=== PATIENT | female | born 1990 | race Caucasian/White ===

== ENCOUNTER 2019-09-10 16:44 | Outpatient (RCR) | payer BC, SELFPAY ==
--- NOTE | 2019-10-08 14:14 | PCPTNOTE ---
patient called and cancelled appt today. MERLIN
== END 2019-10-15 09:10 | disposition home or self-care (01) ==
LOC: CHSPT 16:44
DX: M54.5 Low back pain (principal)
CPT/HCPCS: 97014; 97110; 97161; 97530; G0283

== ENCOUNTER 2020-02-24 18:03 | Emergency (ER) | payer OTHER, SELFPAY ==
--- NOTE | ~2020-02-24 | CT_ITS ---
EXAMINATION: CT abdomen pelvis w con INDICATION: Left lower quadrant pain TECHNIQUE: Computed tomographic images of the abdomen and pelvis were obtained after the administrati on of 100 cc of Omnipaque 350 intravenous contrast. The dose-length product (DLP) was 1224.51 mGy-cm. Automated exposure control and iterative reconstruction technique were employed. COMPARISON: None available FINDINGS: The lung bases are clear. The heart size is normal. There is a 7 mm cyst in the right hepat ic lobe. The spleen, pancreas, gallbladder, and adrenal glands are normal. The left kidney is unremar kable. There is moderate left hydroureteronephrosis ending in a right-sided ureterocele. No pathologi geraldo enlarged abdominal or pelvic lymph nodes are identified. There is no free intraperitoneal gas o r evidence of bowel obstruction. The appendix is normal. An IUD is present in expected position. A mo derate volume of colonic stool is present. A fat-containing umbilical hernia is noted. IMPRESSION: 1. No CT correlate for the patient's symptoms. 2. Moderate right hydroureteronephrosis ending in a right-sided ureterocele. In the absence of right- sided symptoms, nonemergent urologic evaluation is recommended. Reviewed, dictated and finalized at location A. [facility] IMPRESSION: 1. No CT correlate for the patient's symptoms. 2. Moderate right hydroureteronephrosis ending in a right-sided ureterocele. In the absence of right-sided symptoms, nonemergent urologic evaluation is recomm ended.
[2020-02-24 18:06] VITALS: BP 137/83; PULSE 92; RESP 18; TEMP 36.4; O2SAT 100
[2020-02-24] MEDS: SODIUM CHLORIDE 0.9% IV 1,000 ML 999 ML IV CONT (18:51)
[2020-02-24] MEDS: FAMOTIDINE 20 MG/2 ML VIAL IV PUSH (18:52)
[2020-02-24] MEDS: PROCHLORPERAZINE EDISYLATE 10 MG/2 ML VIAL IV PUSH (18:52)
[2020-02-24] MEDS: HYOSCYAMINE SULFATE 0.125 MG TABLET PO (18:52)
[2020-02-24 18:57] LABS: Basophils Percent Auto 0.3 % (0.2-1.2); Eosinophils Absolute Auto 0.1 K/mm3 (0-0.3); Eosinophils Percent Auto 1.7 % (0-4.4); Hematocrit 42.7 % (37.0-47.0); Hemoglobin 13.6 g/dL (12.0-15.0); Immature Granulocyte Absolute 0.03 K/mm3 (0.00-0.031); Immature Granulocyte Percent A 0.5 % (0-0.5); Lymphocytes Absolute Auto 2.06 K/mm3 (0.9-3.2); Lymphocytes Percent Auto 31.2 % (18.3-44.2); Mean Corpuscular HGB Conc 31.9 g/dl (32-36); Mean Corpuscular Hemoglobin 28.6 pg (26-34); Mean Corpuscular Volume 89.9 fl (80-100); Mean Platelet Volume 9.3 fl (7.4-10.4); Monocytes Absolute Auto 0.4 K/mm3 (0.1-0.6); Monocytes Percent Auto 5.6 % (2.6-8.5); Neutrophils Percent Auto 60.7 % (45.5-73.1); Platelet Count Result 237 k/mm3 (150-375); Red Blood Count 4.75 M/mm3 (4.2-5.4); Red Cell Distribution Width 13.1 % (11.5-14.5); White Blood Count 6.6 K/mm3 (4.5-10.0)
[2020-02-24 19:07] LABS: Add Urine Microscopic? YES; Appearance Urine Clear (Clear); Bacteria Urine Trace /hpf; Bilirubin Urine Negative (Negative); Blood Urine Negative (Negative); Color Urine Yellow (Yellow); Glucose Urine UA Negative (Negative); Ketones Urine Negative (Negative); Leukocyte Esterase Ur 2+ LEU/UL (Negative); Mucus Urine Rare /lpf; Nitrate Urine Negative (Negative); Protein Urine Negative (Negative); RBC Urine 0-2 /hpf (0-2); Specific Grav Ur 1.018 (1.001-1.035); Squamous Epithelial Cell Urine Many /hpf (Few); Urobilinogen Urine Negative mg/dL (<2.0)
[2020-02-24 19:11] LABS: Alanine Aminotransferase 16 U/L (4-35); Albumin Level 3.9 g/dL (3.5-5.1); Alkaline Phosphatase 49 U/L (38-126); Anion Gap 6 mmol/L (8-16); Aspartate Amino Transferase 25 U/L (14-36); Bilirubin,Total 0.2 mg/dL (0.2-1.3); Blood Urea Nitrogen 12 mg/dL (7-17); Calcium 8.9 mg/dL (8.4-10.2); Carbon Dioxide 26 mmol/L (22-30); Chloride 105 mmol/L (98-107); Estimated CRCL calculation 122 ml/min; Estimated Glomerular Filt Rate > 60; Glucose 96 mg/dL (65-105); Lipase 60 U/L (23-300); Sodium 137 mmol/L (137-145)
--- NOTE | 2020-02-24 20:08 | ED.ABDPAIN ---
HPI - Abdominal Pain General Chief Complaint: Abdominal Pain Stated Complaint: abd pain Time Seen by Provider: 02/24/20 18:27 Source: patient Mode of arrival: ambulatory Limitations: no limitations History of Present Illness HPI narrative: Patient is a 29-year-old female who presents from urgent care for evaluation of left lower quadrant abdominal pain for 1 week noting aching pain with associated nausea notes history of IBS but states this is different than normal was seen at urgent care started on Cipro and Flagyl patient presents noting she has concern for the continued discomfort and pain denies diarrhea does note history of constipation. Patient on arrival in no distress does not appear uncomfortable Related Data Home Medications Medication Instructions Recorded Confirmed ciprofloxacin HCl 02/24/20 metronidazole 02/24/20 Allergies Allergy/AdvReac Type Severity Reaction Status Date / Time acrylic acid AdvReac Rash Verified 02/24/20 18:10 Review of Systems Review of Systems: All systems reviewed & are unremarkable except as noted in HPI and below PMFSH Past Medical History Medical History Goiter Seizure Umbilical hernia UTI (urinary tract infection) Surgical History Surgical History History of umbilical hernia repair Hx of knee surgery Social History Social History Smoking status: Never smoker Gender identity (if verbalized by the patient): Female Exam Narrative: Exam Narrative: GENERAL: Well-appearing, well-nourished, and in no acute distress. HEAD: Normocephalic, atraumatic. EYES: PERRLA and EOMI. ENT: Nares clear, no rhinorrhea or epistaxis. Mucous membranes moist. CHEST: Clear to auscultation. No respiratory distress. No wheezes rales or rhonchi HEART: Regular rate and rhythm. No murmur heard. Normal peripheral pulses. ABDOMEN: Soft, left lower quadrant tenderness to palpation, nondistended EXTREMITIES: Normal range of motion. No edema. SKIN: Warm, dry, no rash. NEURO: No focal deficits. Alert and oriented x3. PSYCH: Normal mood and affect. Course Course Emergency Course: Patient in the room no distress aware of case findings treatment plan diagnosis agreeing to follow-up with primary care for further evaluation no high risk changes in the evaluation here Vital Signs Vital signs: Vital Signs Temperature 97.6 F 02/24/20 18:06 Pulse Rate 92 02/24/20 18:06 Respiratory Rate 18 02/24/20 18:06 Blood Pressure 137/83 02/24/20 18:06 Pulse Oximetry 100 02/24/20 18:06 Temperature 97.6 F 02/24/20 18:06 Pulse Rate 92 02/24/20 18:06 Respiratory Rate 18 02/24/20 18:06 Blood Pressure 137/83 02/24/20 18:06 Pulse Oximetry 100 02/24/20 18:06 MDM - Abdominal Pain MDM Narrative Medical decision making narrative: Patient with abdominal pain of uncertain etiology no high risk changes will be discharged home advised to discontinue taking her antibiotics that were prescribed for diverticulitis. Patient with ABCs intact vital signs stable felt appropriate for outpatient reevaluation Differential Diagnosis Differential diagnosis: Likely abdominal pain, acute appendicitis, calculus of kidney, constipation, diverticulitis, endometriosis, gastroenteritis and small bowel obstruction Lab Data Result diagrams: 02/24/20 18:51 02/24/20 18:51 Labs: Lab Results 02/24/20 02/24/20 02/24/20 Range/Units 18:51 18:51 18:51 WBC 6.6 (4.5-10.0) K/mm3 RBC 4.75 (4.2-5.4) M/mm3 Hgb 13.6 (12.0-15.0) g/dL Hct 42.7 (37.0-47.0) % MCV 89.9 (80-100) fl MCH 28.6 (26-34) pg MCHC 31.9 L (32-36) g/dl RDW 13.1 (11.5-14.5) % Plt Count 237 (150-375) k/mm3 MPV 9.3 (7.4-10.4) fl Immature Gran % (Auto) 0.5 (0-0.5) % Neut % (Auto) 60.7 (4
[2020-02-24 21:22] VITALS: BP 128/90; PULSE 81; RESP 14; O2SAT 99
== END 2020-02-24 21:22 | disposition home or self-care (01) ==
PROVIDERS: Emergency Medicine; Emergency Provider Emergency Medicine; PCP Nurse Practitioner Adult Health
DX: R10.32 Left lower quadrant pain (principal); Z87.440 Personal history of urinary (tract) infections; N28.89 Other specified disorders of kidney and ureter; N13.30 Unspecified hydronephrosis
CPT/HCPCS: 36415; 74177; 80053; 81001; 81025; 83690; 85025; 87086; 96361; 96374; 96375; 99284; A9270; J0780; J7030; Q9967

== ENCOUNTER → 2021-04-23 13:40 | Outpatient (CLI) | payer BC, SELFPAY ==
--- NOTE | ~2021-04-23 | US_ITS ---
EXAMINATION: US venous doppler LE RT DATE: 04/23/2021 14:13 INDICATION: Right calf pain. TECHNIQUE: Grayscale ultrasound images without and with compression and Doppler ultrasound images of the right lower extremity veins were obtained. COMPARISON: None. FINDINGS: The visualized portions of right common femoral vein, profunda (deep) femoral vein, femoral vein, pop liteal vein, peroneal veins, posterior tibial veins, and greater saphenous vein outflow are patent. IMPRESSION: 1. No deep venous thrombosis. Reviewed, dictated and finalized at location A. [facility]
== END ==
PROVIDERS: Visit Provider Family Medicine
DX: M79.661 Pain in right lower leg (principal)
CPT/HCPCS: 93971